=== PATIENT | male | born 1970 | race Hispanic/Latino ===

== ENCOUNTER 2017-12-16 19:32 | Emergency (ER) | payer SELFPAY ==
[2017-12-16] MEDS ORDERED: ASPIRIN EC 81 MG TAB PO ONE (19:55)
[2017-12-16] MEDS ORDERED: NA CHLORIDE 0.9% 1,000 ML ONE (19:55)
[2017-12-16] MEDS ORDERED: ASPIRIN 81 MG CHEWABLE TABLET ONE (19:56)
[2017-12-16 20:11] LABS: Absolute Monocytes 0.6 K/uL (0.1-1.3); Absolute Neutrophil 3.7 K/uL (1.8-8.0); Basophils % 0.7 % (0-1.3); Eosinophils % 3.2 % (0-4.4); Hematocrit 40.8 % (39.6-49.0); Lymphocytes % 30.3 % (15.3-44.8); MCH 30.7 pg (27.0-35.0); MCV 89.5 fL (80-100); MPV 7.4 fL (7.6-11.3); Monocytes % 8.5 % (3.3-12.3); RBC Red Blood Cell Count 4.56 M/uL (4.33-5.43)
[2017-12-16 20:19] LABS: Protime INR 0.97
[2017-12-16 20:37] LABS: Albumin 3.5 g/dL (3.4-5.0); Bilirubin Direct 0.1 mg/dL (0-0.2); Bilirubin Total 0.4 mg/dL (0.2-1.0); CKMB Creatine Kinase MB 3.2 ng/mL (0.3-3.6); Magnesium 2.1 mg/dL (1.8-2.4); Potassium 3.3 mmol/L (3.5-5.1); Protein, Total 8.4 g/dL (6.4-8.2)
[2017-12-16] MEDS ORDERED: POTASSIUM 25 MEQ EFFERV TAB ONE (20:46)
[2017-12-16 20:52] LABS: Urine Blood NEGATIVE (NEG); Urine Glucose NEGATIVE (NEG); Urine Protein NEGATIVE (NEG)
--- NOTE | 2017-12-16 21:03 | RAD REPORT ---
EXAM DESCRIPTION: RAD - Chest Single View - 12/16/2017 8:29 pm CLINICAL HISTORY: Chest pain COMPARISON: February 2016 TECHNIQUE: AP portable chest image was obtained 2023 . FINDINGS: Lung volumes are relatively low. This accentuates vasculature and lung markings. No pulmon shahnaz edema, failure or focal infiltrate. Heart and vasculature are normal. No measurable pleural effus ion and no pneumothorax. No gross bony abnormality seen. No acute aortic findings suspected. IMPRESSION: Shallow inspiration film without acute cardiopulmonary finding.
[2017-12-16 21:08] LABS: Barbiturates NEGATIVE (NEGATIVE); Benzodiazepines NEGATIVE (NEGATIVE); Cocaine NEGATIVE (NEGATIVE); METHAMPHETAM NEGATIVE (NEGATIVE); Methadone NEGATIVE (NEGATIVE); Opiates NEGATIVE (NEGATIVE); Phencyclidine NEGATIVE (NEGATIVE); THC Cannibis POSITIVE (NEGATIVE)
[2017-12-16 21:51] LABS: CKMB Creatine Kinase MB 2.9 ng/mL (0.3-3.6)
--- NOTE | 2017-12-16 22:12 | EDPHYS ---
Physician Documentation [facility] Name: Darien Gannon Age: 47 yrs Sex: Male : 1970 Arrival Date: 12/16/2017 Time: 19:32 Bed 6 Private MD: ED Physician Kj Bee HPI: 12/16 19:48 This 47 yrs old Male presents to ER via Wheelchair with complaints of Chest mercedes Pain. 19:48 The patient or guardian reports chest pain that is located primarily in the anterior mercedes chest wall, bilaterally. Onset: just prior to arrival. The pain does not radiate. Associated signs and symptoms: The patient has no apparent associated signs or symptoms. The chest pain is described as a pressure. Duration: The patient or guardian reports a single episode, that is still ongoing. Modifying factors: The symptoms are alleviated by nothing. the symptoms are aggravated by nothing. Severity of pain: At its worst the pain was moderate in the emergency department the pain is unchanged. The patient has not experienced similar symptoms in the past. Historical: - Allergies: 19:46 No Known Allergies; ea - PMHx: 19:46 None; ea - PSHx: 19:46 back surgery; ea - Immunization history:: Adult Immunizations up to date. - Social history:: Smoking status: Patient uses tobacco products, smokes one pack cigarettes per day. - Ebola Screening: : No symptoms or risks identified at this time. - Family history:: not pertinent. ROS: 19:48 Constitutional: Negative for fever, chills, and weight loss, Eyes: Negative for injury, mercedes pain, redness, and discharge, ENT: Negative for injury, pain, and discharge, Neck: Negative for injury, pain, and swelling, Respiratory: Negative for shortness of breath, cough, wheezing, and pleuritic chest pain, Abdomen/GI: Negative for abdominal pain, nausea, vomiting, diarrhea, and constipation, Back: Negative for injury and pain, : Negative for injury, bleeding, discharge, and swelling, MS/Extremity: Negative for injury and deformity, Skin: Negative for injury, rash, and discoloration, Neuro: Negative for headache, weakness, numbness, tingling, and seizure, Psych: Negative for depression, anxiety, suicide ideation, homicidal ideation, and hallucinations, Allergy/Immunology: Negative for hives, rash, and allergies, Endocrine: Negative for neck swelling, polydipsia, polyuria, polyphagia, and marked weight changes, Hematologic/Lymphatic: Negative for swollen nodes, abnormal bleeding, and unusual bruising. 19:48 Cardiovascular: Positive for chest pain. Exam: 19:48 Constitutional: This is a well developed, well nourished patient who is awake, alert, mercedes and in no acute distress. Head/Face: Normocephalic, atraumatic. Eyes: Pupils equal round and reactive to light, extra-ocular motions intact. Lids and lashes normal. Conjunctiva and sclera are non-icteric and not injected. Cornea within normal limits. Periorbital areas with no swelling, redness, or edema. ENT: Nares patent. No nasal discharge, no septal abnormalities noted. Tympanic membranes are normal and external auditory canals are clear. Oropharynx with no redness, swelling, or masses, exudates, or evidence of obstruction, uvula midline. Mucous membranes moist. Neck: Trachea midline, no thyromegaly or masses palpated, and no cervical lymphadenopathy. Supple, full range of motion without nuchal rigidity, or vertebral point tenderness. No Meningismus. Chest/axilla: Normal chest wall appearance and motion. Nontender with no deformity. No lesions are appreciated. Cardiovascular: Regular rate and rhythm with a normal S1 and S2. No gallops, murmurs, or rubs. Normal PMI, no JVD. No pulse deficits. Respiratory: Lungs have equal breath sounds bilaterally, clear to auscultation and percussion. No rales, rhonchi or wheezes noted. No increased work of breathing, no retractions or nasal flaring. Abdomen/GI: Soft, non-tender, with normal bowel sounds. No distension or tympany. No guarding or rebound. No evidence of tenderness throughout. Back: No spinal tenderness. No costovertebral tenderness. Full range of motion. Male : Normal genitalia with no discharge or lesions. Skin: Warm, dry with normal turgor. Normal color with no rashes, no lesions, and no evidence of cellulitis. 20:39 Musculoskeletal/extremity: DVT Exam: No signs of deep vein thrombosis. no pain, no mercedes swelling, no tenderness, negative Homans' sign noted on exam, no appreciated bluish discoloration, no erythema, no increased warmth. Vital Signs: 19:42 BP 159 / 103; Pulse 118; Resp 18; Temp 98.7; Pulse Ox 98% on R/A; Weight 83.91 kg (R); ea Height 5 ft. 6 in. (167.64 cm); Pain 10/10; 20:33 BP 139 / 89; Pulse 98; Resp 16; Pulse Ox 100% on R/A; Pain 0/10; aa1 21:27 BP 156 / 97; Pulse 91; Resp 17; Pulse Ox 98% ; ea 22:10 BP 138 / 82; Pulse 88; Resp 18; Temp 98(TE); Pulse Ox 100% on R/A; Pain 0/10; ea 19:42 Body Mass Index 29.86 (83.91 kg, 167.64 cm) ea MDM: 19:35 Patient medically screened. [facility] 20:39 Data reviewed: vital signs, nurses notes, lab test result(s), EKG, radiologic studies, mercedes plain films. 22:06 Data interpreted: Pulse oximetry: on room air is 98 %. Interpretation: normal. pm1 Counseling: I had a detailed discussion with the patient and/or guardian regarding: the historical points, exam findings, and any diagnostic results supporting the discharge/admit diagnosis, lab results, radiology results, the need for outpatient follow up, to return to the emergency department if symptoms worsen or persist or if there are any questions or concerns that arise at home, . 22:06 ED course: Patient reports that his chest pain is resolved and associates it with the pm1 use of marijuana and drinking a red bull at the same time while he was watching a movie. Second cardiac enzymes negative. 22:06 ED course: SOPHIA score = 0, Heart Score = 1. pm1 12/16 19:38 Order name: Basic Metabolic Panel [facility] 12/16 19:38 Order name: CBC with Diff; Complete Time: 20:38 [facility] 12/16 19:38 Order name: Ckmb [facility] 12/16 19:38 Order name: CPK [facility] 12/16 19:38 Order name: LFT's [facility] 12/16 19:38 Order name: Magnesium [facility] 12/16 19:38 Order name: NT PRO-BNP; Complete Time: 20:38 [facility] 12/16 19:38 Order name: PT-INR; Complete Time: 20:38 [facility] 12/16 19:38 Order name: Ptt, Activated; Complete Time: 20:38 [facility] 12/16 19:38 Order name: Troponin (emerg Dept Use Only); Complete Time: 20:38 [facility] 12/16 19:38 Order name: Lipase; Complete Time: 20:38 [facility] 12/16 19:39 Order name: Basic Metabolic Panel; Complete Time: 20:38 [facility] 12/16 19:39 Order name: CKMB Creatine Kinase MB; Complete Time: 20:38 [facility] 12/16 19:39 Order name: Creatine Phosphokinase; Complete Time: 20:38 [facility] 12/16 19:38 Order name: XRAY Chest (1 view); Complete Time: 21:31 [facility] 12/16 19:38 Order name: EKG; Complete Time: 19:39 [facility] 12/16 19:38 Order name: Cardiac monitoring; Complete Time: 19:59 [facility] 12/16 19:38 Order name: EKG - Nurse/Tech; Complete Time: 19:59 [facility] 12/16 19:38 Order name: IV Saline Lock; Complete Time: 20:00 [facility] 12/16 19:38 Order name: Labs collected and sent; Complete Time: 20:00 [facility] 12/16 19:39 Order name: Liver (Hepatic) Function; Complete Time: 20:38 [facility] 12/16 19:39 Order name: Magnesium; Complete Time: 20:38 [facility] 12/16 19:48 Order name: UDS; Complete Time: 21:31 [facility] 12/16 20:50 Order name: Urine Dipstick--Ancillary (enter results); Complete Time: 20:57 [facility] 12/16 20:50 Order name: Ckmb; Complete Time: 22:01 [facility] 12/16 20:50 Order name: Creatine Phosphokinase; Complete Time: 22:01 [facility] 12/16 20:50 Order name: Troponin (emerg Dept Use Only); Complete Time: 22:01 [facility] 12/16 19:38 Order name: O2 Per Protocol; Complete Time: 19:59 [facility] 12/16 19:38 Order name: O2 Sat Monitoring; Complete Time: 20:00 [facility] 12/16 19:38 Order name: Urine Dipstick-Ancillary (obtain specimen); Complete Time: 21:21 [facility] 12/16 20:50 Order name: Repeat Cardiac Enzymes at: 1000pm; Complete Time: 21:22 [facility] Administered Medications: 20:02 Drug: NS 0.9% 1000 ml Route: IV; Rate: 125 ml/hr; Site: right antecubital; ea 21:30 Follow up: Response: No adverse reaction; IV Status: Completed infusion; IV Intake: ea 1000ml 20:02 Drug: Aspirin Chewable Tablet 324 mg Route: PO; ea 20:41 Follow up: Response: No adverse reaction ea 20:50 Drug: Potassium Effervescent Tablet 25 mEq Route: PO; ea 21:21 Follow up: Response: No adverse reaction ea Disposition: 12/16/17 22:11 Discharged to Home. Impression: Other chest pain, Anxiety disorder, unspecified, Hypokalemia, Tobacco abuse counseling, Tobacco use. - Condition is Stable. - Discharge Instructions: Panic Attacks, Potassium Content of Foods, Smoking Cessation, Smoking Hazards, Nonspecific Chest Pain, [id number], Smoking Cessation, Tips For Success, Panic Attacks, [id number], Aspirin and Your Heart, Generalized Anxiety Disorder, Hypokalemia. - Prescriptions for Xanax 0.5 mg Oral Tablet - take 1 tablet by ORAL route every 8 hours As needed; 15 tablet. - Medication Reconciliation Form, Thank You Letter, Antibiotic Education, Prescription Opioid Use form. - Follow up: Private Physician; When: 2 - 3 days; Reason: Recheck today's complaints, Continuance of care, Re-evaluation by your physician. Follow up: Gordon Dillard; When: 2 - 3 days; Reason: Recheck today's complaints, Re-evaluation by your physician. - Problem is new. - Symptoms have improved. Addendum: 12/22/2017 15:14 Co-signature as Attending Physician, Kj Bee MD I agree with the assessment and c givens plan of care. Signatures: Dispatcher [employer] Kj Mckeon MD MD cha Marinas, Patrick, NP REFERRAL NURSE pm1 Gina Jimenez RN RN veda Corrections: (The following items were deleted from the chart) 12/16 22:20 22:11 12/16/2017 22:11 Discharged to Home. Impression: Other chest pain; Anxiety ea disorder, unspecified; Hypokalemia; Tobacco abuse counseling; Tobacco use. Condition is Stable. Discharge Instructions: Panic Attacks, Nonspecific Chest Pain, [id number], Panic Attacks, [id number], Aspirin and Your Heart, Generalized Anxiety Disorder, Potassium Content of Foods, Hypokalemia, Smoking Cessation, Smoking Hazards, Smoking Cessation, Tips For Success. Prescriptions for Xanax 0.5 mg Oral Tablet - take 1 tablet by ORAL route every 8 hours As needed; 15 tablet. and Forms are Medication Reconciliation Form, Thank You Letter, Antibiotic Education, Prescription Opioid Use. Follow up: Private Physician; When: 2 - 3 days; Reason: Recheck today's complaints, Continuance of care, Re-evaluation by your physician. Follow up: Gordon Dillard; When: 2 - 3 days; Reason: Recheck today's complaints, Re-evaluation by your physician. Problem is new. Symptoms have improved. pm1
--- NOTE | 2017-12-16 22:12 | ER ---
Nurse's Notes [facility] Name: Darien Gannon Age: 47 yrs Sex: Male : 1970 Arrival Date: 12/16/2017 Time: 19:32 Bed 6 Private MD: Diagnosis: Other chest pain;Anxiety disorder, unspecified;Hypokalemia;Tobacco abuse counseling;Tobacco use Presentation: 12/16 19:40 Presenting complaint: Patient states: Pt reports he was sitting down smoking a joint ea watching a movie 30 minutes ago and he started to feel his heart race and started having chest pain. Transition of care: patient was not received from another setting of care. Onset of symptoms was December 16, 2017. Risk Assessment: Do you want to hurt yourself or someone else? Patient reports no desire to harm self or others. Initial Sepsis Screen: Does the patient meet any 2 criteria? HR > 90 bpm. Yes Does the patient have a suspected source of infection? No. Patient's initial sepsis screen is negative. Care prior to arrival: None. 19:40 Method Of Arrival: Wheelchair ea 19:40 Acuity: ANA 3 ea Triage Assessment: 19:43 General: Appears uncomfortable, Behavior is anxious. Pain: Complains of pain in chest. ea Cardiovascular: Heart tones S1 S2 present Patient's skin is warm and dry. Historical: - Allergies: 19:46 No Known Allergies; ea - PMHx: 19:46 None; ea - PSHx: 19:46 back surgery; ea - Immunization history:: Adult Immunizations up to date. - Social history:: Smoking status: Patient uses tobacco products, smokes one pack cigarettes per day. - Ebola Screening: : No symptoms or risks identified at this time. - Family history:: not pertinent. Screenin:44 Abuse screen: Denies threats or abuse. Nutritional screening: No deficits noted. ea Tuberculosis screening: No symptoms or risk factors identified. Fall Risk None identified. Assessment: 19:46 General: Appears in no apparent distress. Behavior is anxious. Pain: Pain does not ea radiate. Pain began 30 min ago. Neuro: Level of Consciousness is awake, alert, obeys commands, Oriented to person, place, time, situation. Respiratory: Airway is patent Respiratory effort is even, unlabored, Respiratory pattern is regular, symmetrical, Breath sounds are clear bilaterally. GI: Abdomen is non-distended. Derm: Skin is pink, warm \T\ dry. 20:34 Reassessment: Patient appears in no apparent distress at this time. Patient and/or aa1 family updated on plan of care and expected duration. Pain level reassessed. Patient is alert, oriented x 3, equal unlabored respirations, skin warm/dry/pink. Awaiting lab results. 21:27 Reassessment: Patient and/or family updated on plan of care and expected duration. Pain ea level reassessed. Patient is alert, oriented x 3, equal unlabored respirations, skin warm/dry/pink. Patient states symptoms have improved. 22:16 Reassessment: Patient and/or family updated on plan of care and expected duration. Pain ea level reassessed. Patient is alert, oriented x 3, equal unlabored respirations, skin warm/dry/pink. Discharge instructions given to patient, verbalized the understanding of instruction. Patient states symptoms have improved. Vital Signs: 19:42 BP 159 / 103; Pulse 118; Resp 18; Temp 98.7; Pulse Ox 98% on R/A; Weight 83.91 kg (R); ea Height 5 ft. 6 in. (167.64 cm); Pain 10/10; 20:33 BP 139 / 89; Pulse 98; Resp 16; Pulse Ox 100% on R/A; Pain 0/10; aa1 21:27 BP 156 / 97; Pulse 91; Resp 17; Pulse Ox 98% ; ea 22:10 BP 138 / 82; Pulse 88; Resp 18; Temp 98(TE); Pulse Ox 100% on R/A; Pain 0/10; ea 19:42 Body Mass Index 29.86 (83.91 kg, 167.64 cm) ea ED Course: 19:32 Patient arrived in ED. ds1 19:35 Kj Bee MD is Attending Physician. mercedes 19:40 Gina Jimenez RN is Primary Nurse. ea 19:42 Triage completed. ea 19:44 Arm band placed on right wrist. ea 19:45 Patient maintains SpO2 saturation greater than 95% on room air. ea 19:46 Patient has correct armband on for positive identification. Placed in gown. Bed in low ea position. Call light in reach. Side rails up X 1. conveyor monitor on. Pulse ox on. NIBP on. 20:00 EKG done, by ED staff, reviewed by Kj Bee MD. aa1 20:03 Inserted saline lock: 20 gauge in right antecubital area, using aseptic technique. ea Blood collected. 20:26 X-ray completed. Portable x-ray completed in exam room. Patient tolerated procedure bb2 well. 20:26 XRAY Chest (1 view) In Process Unspecified. EDMS 21:36 Daniele Patel NP is PHCP. pm1 22:10 IV discontinued, intact, bleeding controlled, No redness/swelling at site. Pressure ea dressing applied. 22:11 Gordon Dillard MD is Referral Physician. pm1 22:17 No provider procedures requiring assistance completed. ea Administered Medications: 20:02 Drug: NS 0.9% 1000 ml Route: IV; Rate: 125 ml/hr; Site: right antecubital; ea 21:30 Follow up: Response: No adverse reaction; IV Status: Completed infusion; IV Intake: ea 1000ml 20:02 Drug: Aspirin Chewable Tablet 324 mg Route: PO; ea 20:41 Follow up: Response: No adverse reaction ea 20:50 Drug: Potassium Effervescent Tablet 25 mEq Route: PO; ea 21:21 Follow up: Response: No adverse reaction ea Intake: 21:30 IV: 1000ml; Total: 1000ml. ea Outcome: 22:11 Discharge ordered by . pm1 22:17 Discharged to home ambulatory, with family. ea 22:17 Condition: good 22:17 Discharge instructions given to patient, Instructed on discharge instructions, follow up and referral plans. medication usage, Demonstrated understanding of instructions, follow-up care, medications, Prescriptions given X 1. 22:20 Patient left the ED. ea Signatures: Dispatcher [employer] EDMS Philly Osorio, RN RN aa1 Kj Bee MD MD cha Sanford, Demi ds1 Daniele Patel, [employer] pm1 Gina Jimenez RN RN ea Bock, Brittany bb2
--- NOTE | 2017-12-17 09:39 | EKG ---
Test Date: 2017-12-16 Test Time: 19:49:48 [employer]: TRESA MEASUREMENT RESULTS: Intervals: Rate: 105 LA: 160 QRSD: 92 QT: 358 QTc: 473 [place]: P: 42 LA: 160 QRS: 14 T: 16 INTERPRETIVE STATEMENTS: Sinus tachycardia Otherwise normal ECG Compared to ECG 02/05/2016 06:20:22 Sinus rhythm no longer present Electronically Signed On 12-17-17 09:38:32 CDT by Gera Garcia
== END 2017-12-16 22:20 | disposition home or self-care (01) ==
LOC: ER 19:32
DX: R07.89 Other chest pain (principal); F41.9 Anxiety disorder, unspecified; E87.6 Hypokalemia; F17.210 Nicotine dependence, cigarettes, uncomplicated
CPT/HCPCS: 36415; 71045; 80048; 80076; 80307; 81003; 82550; 82553; 83690; 83735; 83880; 84484; 85025; 85610; 85730; 93005; 96360; 99285; J7030

== ENCOUNTER 2018-11-16 23:24 | Emergency (ER) | payer SELFPAY ==
[2018-11-17] MEDS ORDERED: LORazepam 2 MG/ML VIAL ONE ×2 (01:23→03:19)
[2018-11-17 01:28] LABS: Absolute Lymphocytes (CBC) 2.2 K/uL (0.7-4.9); Basophils % 0.5 % (0-1.3); Eosinophils % 1.9 % (0-4.4); Hematocrit 45.5 % (39.6-49.0); Lymphocytes % 20.3 % (15.3-44.8); MPV 7.7 fL (7.6-11.3); Monocytes % 12.3 % (3.3-12.3); RBC Red Blood Cell Count 5.01 M/uL (4.33-5.43)
[2018-11-17 01:47] LABS: ALT/SGPT 32 U/L (12-78); AST/SGOT 24 U/L (15-37); Albumin 3.4 g/dL (3.4-5.0); Alkaline Phosphatase 62 U/L (45-117); BUN Blood Urea Nitrogen 16 mg/dL (7-18); Bicarbonate 25 mmol/L (21-32); Bilirubin Direct 0.3 mg/dL (0-0.2); Bilirubin Total 0.9 mg/dL (0.2-1.0); Glucose Level 100 mg/dL (74-106); Potassium 3.4 mmol/L (3.5-5.1); Protein, Total 8.2 g/dL (6.4-8.2); Sodium Level 140 mmol/L (136-145)
[2018-11-17 01:47] LABS: Barbiturates NEGATIVE (NEGATIVE); Benzodiazepines NEGATIVE (NEGATIVE); Cocaine NEGATIVE (NEGATIVE); METHAMPHETAM POSITIVE (NEGATIVE); Methadone NEGATIVE (NEGATIVE); Opiates NEGATIVE (NEGATIVE); Phencyclidine NEGATIVE (NEGATIVE); THC Cannibis NEGATIVE (NEGATIVE)
[2018-11-17 01:56] LABS: Urine Blood TRACE (NEG); Urine Glucose NEGATIVE (NEG); Urine Protein NEGATIVE (NEG); Urine pH 7.5 (5.0-7.0)
[2018-11-17] MEDS ORDERED: DIPHENHYDRAMINE 50 MG/ML VIAL ONE (04:06)
[2018-11-17] MEDS ORDERED: HALOPERIDOL LACT 5 MG/ML INJ ONE (04:06)
--- NOTE | 2018-11-17 06:19 | EDPHYS ---
Physician Documentation [facility] Name: Darien Gannon Age: 48 yrs Sex: Male : 1970 Arrival Date: 11/16/2018 Time: 23:25 Bed 6 Private MD: ED Physician Carrillo Nino HPI: 11/17 06:10 This 48 yrs old Male presents to ER via EMS with complaints of Drug Abuse. gs 06:13 The patient presents to the emergency department with psychosis, has experienced visual gs hallucinations, a history of substance abuse, Type: methamphetamines. Onset: The symptoms/episode began/occurred 1 week(s) ago, and became persistent. Associated signs and symptoms: Pertinent positives; delusions, depression, Pertinent negatives: homicidal ideation, suicide ideation. Severity of symptoms: At their worst the symptoms were severe in the emergency department the symptoms are unchanged. The patient has experienced similar episodes in the past, multiple times. Historical: - Allergies: 11/16 23:29 No Known Allergies; ak1 - Home Meds: 23:29 None [Active]; ak1 - PMHx: 23:29 drug abuse; ak1 - PSHx: 23:29 back surgery; ak1 - Immunization history:: Adult Immunizations unknown. - Social history:: Smoking status: Patient uses tobacco products, smokes two packs cigarettes per day. Patient uses alcohol, on a daily basis. street drugs, Methamphetamine (Meth). - Ebola Screening: : No symptoms or risks identified at this time. ROS: 11/17 06:13 All other systems are negative. gs Exam: 06:13 Head/Face: Normocephalic, atraumatic. Eyes: Pupils equal round and reactive to light, gs extra-ocular motions intact. Lids and lashes normal. Conjunctiva and sclera are non-icteric and not injected. Cornea within normal limits. Periorbital areas with no swelling, redness, or edema. ENT: Nares patent. No nasal discharge, no septal abnormalities noted. Tympanic membranes are normal and external auditory canals are clear. Oropharynx with no redness, swelling, or masses, exudates, or evidence of obstruction, uvula midline. Mucous membranes moist. Neck: Trachea midline, no thyromegaly or masses palpated, and no cervical lymphadenopathy. Supple, full range of motion without nuchal rigidity, or vertebral point tenderness. No Meningismus. Chest/axilla: Normal chest wall appearance and motion. Nontender with no deformity. No lesions are appreciated. Respiratory: Lungs have equal breath sounds bilaterally, clear to auscultation and percussion. No rales, rhonchi or wheezes noted. No increased work of breathing, no retractions or nasal flaring. Abdomen/GI: Soft, non-tender, with normal bowel sounds. No distension or tympany. No guarding or rebound. No evidence of tenderness throughout. Back: No spinal tenderness. No costovertebral tenderness. Full range of motion. Skin: Warm, dry with normal turgor. Normal color with no rashes, no lesions, and no evidence of cellulitis. MS/ Extremity: Pulses equal, no cyanosis. Neurovascular intact. Full, normal range of motion. Neuro: Awake and alert, GCS 15, oriented to person, place, time, and situation. Cranial nerves II-XII grossly intact. Motor strength 5/5 in all extremities. Sensory grossly intact. Cerebellar exam normal. Normal gait. 06:13 Constitutional: The patient appears alert, awake. 06:13 Cardiovascular: Rate: tachycardic, Rhythm: regular, Pulses: no pulse deficits are appreciated. 06:13 Psych: Behavior/mood is anxious, Affect is animated, Oriented to person, place, time, Patient has no thoughts/intents to harm self or others. Judgement / Insight is impaired. Delusions/hallucinations are present and described as thinks people are trying to hurt him, doesn't know who they are. Vital Signs: 11/16 23:25 BP 150 / 102; Pulse 110; Resp 22; Temp 97.6; Pulse Ox 100% on R/A; Weight 77.11 kg (R); ak1 Height 5 ft. 6 in. (167.64 cm) (R); Pain 0/10; 11/17 01:20 BP 147 / 101; Pulse 99; Resp 18; Pulse Ox 100% on R/A; Pain 0/10; lp1 04:00 BP 132 / 91; Pulse 113; Resp 18; Pulse Ox 100% on R/A; lp1 05:54 BP 104 / 74; Pulse 98; Resp 18; Pulse Ox 99% on R/A; mt 08:25 BP 102 / 69; Pulse 100; Resp 18 S; Temp 97.6(TE); Pulse Ox 99% on R/A; Pain 0/10; aa5 11/16 23:25 Body Mass Index 27.44 (77.11 kg, 167.64 cm) ak1 MDM: 00:58 Patient medically screened. 06:13 Differential diagnosis: drug withdrawal. acute psychotic break, psychosis secondary to gs non-compliance. Data reviewed: vital signs, nurses notes, lab test result(s). Response to treatment: the patient's symptoms have markedly improved after treatment, and as a result, I will discharge patient. 11/17 01:00 Order name: Acetaminophen 11/17 01:00 Order name: Basic Metabolic Panel 11/17 01:00 Order name: CBC with Diff 11/17 01:00 Order name: ETOH Level 11/17 01:00 Order name: Hepatic Function 11/17 01:00 Order name: PT-INR 11/17 01:00 Order name: Ptt, Activated; Complete Time: 02:37 11/17 01:00 Order name: Salicylate; Complete Time: 02:37 11/17 01:00 Order name: Urine Drug Screen; Complete Time: 02:37 11/17 01:04 Order name: Acetaminophen Level; Complete Time: 02:37 EDMA 11/17 01:04 Order name: Basic Metabolic Panel; Complete Time: 02:37 EDMA 11/17 01:05 Order name: CBC with Automated Diff; Complete Time: 02:37 EDMA 11/17 01:05 Order name: Alcohol Serum/Plasma; Complete Time: 02:37 EDMA 11/17 01:05 Order name: Liver (Hepatic) Function; Complete Time: 02:37 EDMA 11/17 01:00 Order name: IV Saline Lock; Complete Time: 01:08 11/17 01:00 Order name: Labs collected and sent; Complete Time: 01:22 11/17 01:00 Order name: Urine Dipstick-Ancillary (obtain specimen); Complete Time: 01:05 11/17 01:05 Order name: Protime (+INR); Complete Time: 02:37 EDMA 11/17 01:05 Order name: Urine Dipstick--Ancillary (enter results); Complete Time: 02:37 [facility] 11/17 07:22 Order name: Diet Regular; Complete Time: 07:23 aa5 Administered Medications: 01:15 Drug: Ativan 1 mg Route: IVP; Site: right antecubital; lp1 02:30 Follow up: Response: No change in condition lp1 03:00 Drug: Ativan 2 mg Route: IVP; Site: right antecubital; tl2 03:30 Follow up: Response: No change in condition lp1 04:00 Drug: HALdol 5 mg Route: IVP; Site: right forearm; lp1 04:30 Follow up: Response: Marked relief of symptoms; Anxiety decreased lp1 04:00 Drug: Benadryl 25 mg Route: IVP; Site: right forearm; lp1 04:30 Follow up: Response: Marked relief of symptoms; Anxiety decreased lp1 Disposition: 11/17/18 06:17 Discharged to Home. Impression: Adverse effect of unspecified psychostimulants, Psychotic disorder with hallucinations due to known physiological condition. - Condition is Stable. - Discharge Instructions: Stimulant Use Disorder-Methamphetamines, Psychosis. - Medication Reconciliation Form, Thank You Letter, Antibiotic Education, Prescription Opioid Use form. - Follow up: Private Physician; When: 2 - 3 days; Reason: Re-evaluation by your physician. Signatures: Dispatcher [employer] EDMónica Chen RN RN aa5 Florinda Elmore RN RN lp1 Emi Wilde RN RN ak1 Bessie Denton RN RN tl2 Carrillo Nino MD MD Corrections: (The following items were deleted from the chart) 10:12 06:17 11/17/2018 06:17 Discharged to Home. Impression: Adverse effect of unspecified aa5 psychostimulants; Psychotic disorder with hallucinations due to known physiological condition. Condition is Stable. Forms are Medication Reconciliation Form, Thank You Letter, Antibiotic Education, Prescription Opioid Use. Follow up: Private Physician; When: 2 - 3 days; Reason: Re-evaluation by your physician. gs
--- NOTE | 2018-11-17 06:19 | ER ---
Nurse's Notes [facility] Name: Darien Gannon Age: 48 yrs Sex: Male : 1970 Arrival Date: 11/16/2018 Time: 23:25 Bed 6 Private MD: Diagnosis: Adverse effect of unspecified psychostimulants;Psychotic disorder with hallucinations due to known physiological condition Presentation: 11/16 23:26 Presenting complaint: EMS states: they were called out for a male with SOB and anxiety. ak1 pt stated to EMS he was kicked out of his home today. pt admits to alcohol use today. pt admits to meth use on a regular basis, last use was yesterday. pt stated to EMS he "wants help, wants to go to rehab". Transition of care: patient was not received from another setting of care. Onset of symptoms was November 16, 2018. Risk Assessment: Do you want to hurt yourself or someone else? Patient reports no desire to harm self or others. Initial Sepsis Screen: Does the patient meet any 2 criteria? RR > 20 per min. HR > 90 bpm. Yes Does the patient have a suspected source of infection? No. Patient's initial sepsis screen is negative. Care prior to arrival: IV initiated. 18 GA, in the right antecubital area. 23:26 Method Of Arrival: EMS: [facility] ak1 23:26 Acuity: ANA 3 ak1 Triage Assessment: 23:29 General: Appears in no apparent distress. slender, Behavior is agitated, anxious. Pain: ak1 Denies pain. Historical: - Allergies: 23:29 No Known Allergies; ak1 - Home Meds: 23:29 None [Active]; ak1 - PMHx: 23:29 drug abuse; ak1 - PSHx: 23:29 back surgery; ak1 - Immunization history:: Adult Immunizations unknown. - Social history:: Smoking status: Patient uses tobacco products, smokes two packs cigarettes per day. Patient uses alcohol, on a daily basis. street drugs, Methamphetamine (Meth). - Ebola Screening: : No symptoms or risks identified at this time. Screenin:47 Abuse screen: Denies threats or abuse. Denies injuries from another. Nutritional lp1 screening: No deficits noted. Tuberculosis screening: No symptoms or risk factors identified. Fall Risk None identified. Assessment: 23:46 General: Appears in no apparent distress. Behavior is anxious, restless. Pain: Denies lp1 pain. Neuro: Level of Consciousness is awake, alert, obeys commands, Oriented to person, place, time, situation. Cardiovascular: Patient's skin is warm and dry. Respiratory: Respiratory effort is even, unlabored. GI: No signs and/or symptoms were reported involving the gastrointestinal system. : No signs and/or symptoms were reported regarding the genitourinary system. EENT: No signs and/or symptoms were reported regarding the EENT system. Derm: Skin is pink, warm \\T\\ dry. Bruising that is dark purple, on left eye. Musculoskeletal: No deficits noted. 11/17 00:30 Reassessment: Patient is alert, oriented x 3, equal unlabored respirations, skin lp1 warm/dry/pink. Patient pacing in room, walking back and forth to bathroom; Denies any needs. 01:30 Reassessment: Patient expresses paranoia, states "Is there anybody outside the door? I lp1 know people are looking for me and want me "; Patient reoriented. 02:30 Reassessment: Patient appears in no apparent distress at this time. Patient sitting in lp1 bed, states "I think the medicine made me more paranoid"; Provider notified. 03:15 Reassessment: Patient and/or family updated on plan of care and expected duration. Pain lp1 level reassessed. Patient noted to be pacing in room; Found needle in drawer, states "I'm going to use this to defend myself when they come after me"; Patient cooperative in giving 18g needle to nurse; Security outside of room to take patient's belongings;. 04:10 Reassessment: Patient lying in bed, lights turned off for patient comfort; sitter at lp1 bedside with patient. 04:30 Reassessment: Patient resting, eyes closed, respirations unlabored. lp1 05:00 Reassessment: [facility] at bedside to speak with patient. lp1 05:19 Reassessment: Patient unable to engage with [facility] at this time; continuing to [facility] fall asleep. 05:56 Reassessment: Patient appears in no apparent distress at this time. Patient resting, lp1 eyes closed, respirations unlabored. 08:25 Reassessment: Patient is alert, oriented x 3, equal unlabored respirations, skin aa5 warm/dry/pink. Patient denies pain at this time. Pt notified of d/c orders, pt states "I just need to sleep a little bit longer because I am homeless". Agreed to let pt rest longer. Pt also given breakfast tray.. . 09:35 Reassessment: Patient is alert, oriented x 3, equal unlabored respirations, skin aa5 warm/dry/pink. Pt ate 100% of breakfast. . 09:35 Reassessment: Pt resting with eyes closed, pt easy to awaken to verbal stimuli. . aa5 Psych: 03:15 Subjective: Patient's mood is irritable, Delusions are persecutory, Hallucinations are lp1 suspected, Having thoughts of Patient continues to states "I know they are coming for me, they want me ". Objective: Patient is cooperative, restless, Speech is normal. Interventions: Removed personal items and placed in bag. Patient placed in hospital gown. Searched person for dangerous items. Suicide Risk Assessment: Sad Person Scale: Sex of patient: Male: Score 1 point. Age of patient: Score 0 point if patient falls outside of specified age parameters. Depression: Score 0 point if signs of depression are not present. Previous Attempt: Score 0 point if patient has not previously attempted suicide. Substance Abuse: Score 1 point if patient abuses alcohol or drugs. Rational Thinking: Score 1 point if patient is lacking rational thinking. Social Support: Score 1 point if social support is lacking and/or unavailable. Organized Plan: Score 0 if patient did not have an organized plan in place. Relationship: Score 1 point if patient is , , , or for a single male Chronic Sickness: Score 0 point if patient does not have a chronic illness, debilitating, or severe disorder. TOTAL POINTS: If total points are 5-6, proposed clinical action is to strongly consider hospitalization, depending upon confidence in the follow-up arrangement. Implement suicide precautions. Safety Checks: Personal items have been removed. Door is open. No visitors are present at this time. Patient uses of beer, Patient uses methamphetamines weekly. Vital Signs: 11/16 23:25 BP 150 / 102; Pulse 110; Resp 22; Temp 97.6; Pulse Ox 100% on R/A; Weight 77.11 kg (R); ak1 Height 5 ft. 6 in. (167.64 cm) (R); Pain 0/10; 11/17 01:20 BP 147 / 101; Pulse 99; Resp 18; Pulse Ox 100% on R/A; Pain 0/10; lp1 04:00 BP 132 / 91; Pulse 113; Resp 18; Pulse Ox 100% on R/A; lp1 05:54 BP 104 / 74; Pulse 98; Resp 18; Pulse Ox 99% on R/A; mt 08:25 BP 102 / 69; Pulse 100; Resp 18 S; Temp 97.6(TE); Pulse Ox 99% on R/A; Pain 0/10; aa5 11/16 23:25 Body Mass Index 27.44 (77.11 kg, 167.64 cm) ak1 ED Course: 11/16 23:25 Patient arrived in ED. tl2 23:28 Triage completed. ak1 23:29 Arm band placed on Patient placed in an exam room, on a stretcher, on pulse oximetry, ak1 Patient notified of wait time. 23:46 Florinda Elmore, OCTAVIO is Primary Nurse. lp1 23:47 Patient has correct armband on for positive identification. lp1 11/17 00:03 Carrillo Nino MD is Attending Physician. gs 01:15 Maintain EMS IV. Dressing intact. Good blood return noted. Site clean \\T\\ dry. Gauge \\T\\ lp 1 site: 18g to R AC. 01:15 Initial lab(s) drawn, by me, sent to lab. lp1 03:30 Safety Checks: Personal items have been removed. The door is open or patient has been lp1 placed in a hallway bed/chair. There are no family/friend visitors at this time Sitter present at this time. 03:45 Safety Checks: Personal items have been removed. The door is open or patient has been lp1 placed in a hallway bed/chair. There are no family/friend visitors at this time Sitter present at this time. 04:00 Safety Checks: Personal items have been removed. The door is open or patient has been lp1 placed in a hallway bed/chair. There are no family/friend visitors at this time Sitter present at this time. 04:00 Inserted saline lock: 20 gauge in right forearm, using aseptic technique. lp1 04:00 18g IV to R AC DC'd due to dislodgement. lp1 04:15 Safety Checks: Personal items have been removed. The door is open or patient has been lp1 placed in a hallway bed/chair. There are no family/friend visitors at this time Sitter present at this time. 04:30 Safety Checks: Personal items have been removed. The door is open or patient has been lp1 placed in a hallway bed/chair. There are no family/friend visitors at this time Sitter present at this time. 04:45 Safety Checks: Personal items have been removed. The door is open or patient has been lp1 placed in a hallway bed/chair. There are no family/friend visitors at this time Sitter present at this time. 05:00 Safety Checks: Personal items have been removed. The door is open or patient has been lp1 placed in a hallway bed/chair. There are no family/friend visitors at this time Sitter present at this time. [facility] at bedside. 05:00 contacted the patients father to pick up man patient once discharged and he stated, " He mt can just walk home. I'm not coming to get him." When asked for other family/friends contact information the patients father hung up. 05:15 Safety checks: Items removed: yes. Door open/sign placed on door: yes. Family/friend mt present: no. Sitter present: Yes. 05:30 Safety checks: Items removed: yes. Door open/sign placed on door: yes. Family/friend mt present: no. Sitter present: Yes. 05:45 Safety checks: Items removed: yes. Door open/sign placed on door: yes. Family/friend mt present: no. Sitter present: Yes. 05:57 No provider procedures requiring assistance completed. lp1 09:39 intact, bleeding controlled, No redness/swelling at site. Pressure dressing applied, aa5 20G to R FA dc'd. Administered Medications: 01:15 Drug: Ativan 1 mg Route: IVP; Site: right antecubital; lp1 02:30 Follow up: Response: No change in condition lp1 03:00 Drug: Ativan 2 mg Route: IVP; Site: right antecubital; tl2 03:30 Follow up: Response: No change in condition lp1 04:00 Drug: HALdol 5 mg Route: IVP; Site: right forearm; lp1 04:30 Follow up: Response: Marked relief of symptoms; Anxiety decreased lp1 04:00 Drug: Benadryl 25 mg Route: IVP; Site: right forearm; lp1 04:30 Follow up: Response: Marked relief of symptoms; Anxiety decreased lp1 Outcome: 06:17 Discharge ordered by . gs 10:05 Discharged to home ambulatory. ss 10:05 Condition: good 10:05 Discharge instructions given to patient, Instructed on discharge instructions, follow up and referral plans. Demonstrated understanding of instructions, follow-up care. 10:12 Patient left the ED. aa5 Signatures: Mónica Ly RN RN aa5 Trupti Dowling RN RN ss Florinda Elmore RN RN lp1 Emi Wilde RN RN ak1 Bessie Denton RN RN tl2 Mary Noble mt, Gregory, MD MD Corrections: (The following items were deleted from the chart) 03:48 03:15 Reassessment: Patient and/or family updated on plan of care and expected lp1 duration. Pain level reassessed. Patient noted to be pacing in room; Found needle in drawer, states "I'm going to use this to defend myself when they come after me"; Patient cooperative in giving needle to nurse; Security outside of room to take patient's belongings; lp1 06:50 06:47 contacted the patients father to pick up man patient once discharged and he stated, " mt He can just walk home. I'm not coming to get him." When asked for other family/friends contact information the patients father hung up. mt 10:14 09:45 Reassessment: Patient is alert, oriented x 3, equal unlabored respirations, skin aa5 warm/dry/pink. Pt ate 100% of breakfast. . aa5
== END 2018-11-17 10:12 | disposition home or self-care (01) ==
LOC: ER 23:24
DX: F06.0 Psychotic disorder with hallucinations due to known physiological condition (principal); T43.625A Adverse effect of amphetamines, initial encounter; F17.210 Nicotine dependence, cigarettes, uncomplicated
CPT/HCPCS: 36415; 80048; 80076; 80307; 80320; 80329; 81003; 85025; 85610; 85730; 99285; J1630